=== PATIENT | female | born 1960 | race African-American/Black ===

== ENCOUNTER 2017-08-21 11:34 | Day surgery (SDC) | payer OTHER ==
[~2017-08-21 11:34] MED LIST: WATER FOR IRRIG STERILE IR ONE
[2017-08-21] MEDS ORDERED: NACL 0.9% 1000 ML 1,000 ML IV SCH (12:00)
--- NOTE | 2017-08-21 13:23 | Anesthesia Day of Surgery ---
Anesthesia Day of Surgery - Day of Surgery Patient Examined: Yes Patient H&P Reviewed: Yes Patient is NPO: Yes
--- NOTE | 2017-08-21 13:23 | Anesthesia Consultation ---
Anesthesia Consult and Med Hx Date of service: 08/21/17 - Airway Anesthetic Teeth Evaluation: Good ROM Head & Neck: Adequate Mental/Hyoid Distance: Adequate Mallampati Class: Class I Intubation Access Assessment: Probably Good - Pulmonary Exam CTA: Yes - Cardiac Exam Cardiac Exam: RRR - Pre-Operative Health Status ASA Pre-Surgery Classification: ASA1 Proposed Anesthetic Plan: MAC - Gastrointestinal Hx Gastroesophageal Reflux Disease: Yes (ON MEDS, OCCASIONAL)
[2017-08-21] MEDS ORDERED: WATER FOR IRRIG STERILE IR ONE (14:32)
[2017-08-21] MEDS ORDERED: DIPRIVAN 10 MG/ML IV ONE ×2 (14:32)
[2017-08-21] MEDS ORDERED: WATER FOR IRRIG STERILE ONE (14:50)
--- NOTE | 2017-08-21 14:59 | Discharge Summary ---
Short Stay Discharge Plan Activity: advance as tolerated Weight Bearing Status: Weight Bear as Tolerated Diet: regular
--- NOTE | 2017-08-21 14:59 | Operative Report ---
Operative Report Operative Report: Date of procedure: 08/21/2017 Procedure: Colonoscopy. Attending physician: Harshad Garcia MD Bathroom Tiling Professional: Harshad Garcia MD Indication: Patient is a 57-year-old female who presents for colorectal cancer screening. A colonoscopy serves to evaluate patient for colorectal cancer screening. Consent: Informed consent was obtained after advising the patient and family regarding nature of this procedure, its indications, potential benefits as well as possible complications including but not limited to bleeding perforation and adverse reaction to medication, infection as well as other cardiopulmonary complications. An informed written and verbal consent was then obtained after due opportunity was provided for questions and answers. Monitoring: Patient was monitored continuously with pulse oximetry and electrocardiographic recordings as well as blood pressure recordings. Vital signs remained stable throughout this procedure with no untoward events. Preoperative assessment: Patient was assessed immediately prior to this procedure for capacity to tolerate monitored anesthesia care and moderate sedation as well as general anesthesia. Patient's ASA classification is 2, Mallampati class is 2, Hyomental distance is 3. Instrument: Fujinon videocolonoscope. Fujinon video endoscope. Medications: Propofol given intravenously in divided doses. For details please refer to anesthesia records. Description of procedure: Patient was placed in the left lateral decubitus position after achieving sedation, a digital rectal examination was performed following which the colonoscope was introduced into the anal verge and advanced to the cecum which was identified by the cecal valve, the appendiceal orifice, as well as by the cecal strap and direct transillumination. The colonoscope was subsequently withdrawn with careful inspection of all mucosal surfaces. Patient tolerated this procedure well and was subsequently taken to the recovery room. The following findings were noted. Findings: The entirety of the colon to the cecum was normal. The preparation was excellent. On the retroflex view at the anal verge, patient had internal hemorrhoids. Patient tolerated the procedure well with no untoward events. Impression: Internal hemorrhoids otherwise normal colonoscopy. Plan: High-fiber diet. Repeat colonoscopy in 10 years
[2017-08-21 15:33] VITALS: BP 103/68
--- NOTE | 2017-08-21 16:04 | Post Anesthesia Evaluation ---
- Post Anesthesia Evaluation Patient Participated: Yes Airway Patent: Yes Stable Respiratory Function: Yes Nausea/Vomiting: No Temp > 96.8F: Yes Pain Manageable: Yes Adequeate Hydration: Yes Anesthesia Complications: No
== END 2017-08-21 11:35 | disposition home or self-care (01) ==
LOC: GIO 11:34
PROVIDERS: ATTEND Internal Medicine Gastroenterology
DX: Z12.11 Encounter for screening for malignant neoplasm of colon (principal); K64.8 Other hemorrhoids; K21.9 Gastro-esophageal reflux disease without esophagitis; Z79.899 Other long term (current) drug therapy
CPT/HCPCS: 45378; J2704; J7030

== ENCOUNTER 2019-08-22 14:39 | Outpatient (CLI) | payer OTHER ==
--- NOTE | 2019-08-22 16:09 | Mammography Report ---
DIGITAL SCREENING MAMMOGRAM WITH CAD, 08/22/2019 INDICATION: Routine screening mammography. TECHNIQUE: Digital bilateral 2D mammography was obtained in the craniocaudal and mediolateral obliq ue projections. This examination was interpreted with the benefit of Computer-Aided Detection analysi s. COMPARISON: None available. FINDINGS: Breast Density: The breasts are heterogeneously dense, which may obscure small masses. There is no evidence of dominant mass, suspicious calcifications or architectural distortion in eithe r breast. IMPRESSION: No mammographic evidence of malignancy. Follow up recommendation: Routine yearly BI-RADS Category 1: Negative. A "normal" or negative report should not discourage follow up or biopsy of a clinically significant f inding. A written summary of these findings will be mailed to the patient. The patient will be entered into a mammography reporting system which will generate a reminder letter for the patient's next appointmen t at the appropriate interval. The [employer] recommends yearly mammograms starting at age 40 and continuing as l rachel as a woman is in good health. Breast MRI is recommended for women with an approximate 20-25% or greater lifetime risk of breast cancer, including women with a strong family history of breast or ova juana cancer or who have been treated for Hodgkin's disease. Signer Name: Jefe Verdugo MD Signed: 08/22/2019 4:04 PM Workstation Name: [id number]
== END 2019-08-22 14:40 | disposition home or self-care (01) ==
LOC: MAMMO 14:39
PROVIDERS: ATTEND Internal Medicine Gastroenterology
DX: Z12.31 Encounter for screening mammogram for malignant neoplasm of breast (principal)
CPT/HCPCS: 77067